=== PATIENT | female | born 1960 | race Caucasian/White ===

== ENCOUNTER 2019-05-13 12:57 | Day surgery (SDC) | payer OTHER, MEDICARE ==
[2019-05-13] MEDS ORDERED: Sodium Chloride 0.9% 10 ML FLUSH Syringe IJ ONE (12:58)
[2019-05-13] MEDS ORDERED: Decadron 4 MG INJ IV ONE (12:58)
[2019-05-13] MEDS ORDERED: Xylocaine 1% Vial 30 ML PF IJ ONE (12:58)
[2019-05-13] MEDS ORDERED: Lactated Ringers 1,000 ML IV ONE (13:45)
--- NOTE | 2019-05-13 15:09 | XRAY ---
Indication: Cervical GERMANIA. Intraoperative fluoroscopy was provided for 22 seconds. 2 digital spot images submitted for interpretation demonstrates midline needle tip just posterior to C7. Small amount of contrast injected for needle tip placement. Correlate with intraoperative findings/report.
--- NOTE | 2019-05-13 15:11 | XRAY ---
22 seconds fluoroscopy time in surgery for cervical GERMANIA.
== END 2019-05-13 14:58 | disposition home or self-care (01) ==
LOC: SDC-PAIN 12:57
PROVIDERS: ATTEND Psychiatry & Neurology Pain Medicine
DX: M54.12 Radiculopathy, cervical region (principal); K21.9 Gastro-esophageal reflux disease without esophagitis; F41.8 Other specified anxiety disorders; Z79.899 Other long term (current) drug therapy
CPT/HCPCS: 62321; 72040; 77003; J1100; J2001; Q9966

== ENCOUNTER 2019-08-26 12:33 | Day surgery (SDC) | payer OTHER, MEDICARE ==
[~2019-08-26 12:33] MED LIST: DIPRIVAN 200 MG/20 ML IV ONE; Ketamine HCl 50 MG/ML ONE
[2019-08-26] MEDS ORDERED: Xylocaine-Mpf 2% 5 Ml Vial IJ ONE (12:34)
[2019-08-26] MEDS ORDERED: Decadron 4 MG INJ IV ONE (12:34)
--- NOTE | 2019-08-26 16:25 | XRAY ---
Indication: Right C2-C4 MBB. Intraoperative fluoroscopy was provided for 20 seconds. 2 digital spot images submitted for interpretation demonstrates posterior needle tips projecting over the expected course of the right C2-C4 nerve roots. Correlate with intraoperative findings/report.
[2019-08-26] MEDS ORDERED: Lactated Ringers 1,000 ML IV ONE (16:37)
--- NOTE | 2019-08-26 16:38 | XRAY ---
20 seconds fluoroscopy time in surgery for right C2-C4 MBB.
== END 2019-08-26 14:12 | disposition home or self-care (01) ==
LOC: SDC-PAIN 12:33
PROVIDERS: ATTEND Psychiatry & Neurology Pain Medicine
DX: M47.812 Spondylosis without myelopathy or radiculopathy, cervical region (principal); K21.9 Gastro-esophageal reflux disease without esophagitis; Z79.899 Other long term (current) drug therapy
CPT/HCPCS: 64490; 64491; 72020; 77002; J1100; J2704

== ENCOUNTER 2019-12-02 11:00 | Day surgery (SDC) | payer OTHER, MEDICARE ==
[2019-12-02] MEDS ORDERED: Sodium Chloride 0.9(Preservative Free) 10 ML IJ ONE (11:01)
[2019-12-02] MEDS ORDERED: Depo-Medrol 40 MG/ML IM ONE (11:01)
--- NOTE | 2019-12-02 13:37 | XRAY ---
Indication: Left L4-L5 transforaminal GERMANIA. Intraoperative fluoroscopy provided for 1 minute 4 seconds. 3 digital spot images submitted for interpretation demonstrates posterior needle tip projecting over the expected left L5 nerve root. Small amount of contrast injected for needle tip placement. Correlate with intraoperative findings/report. Incidental partially visualized bilateral posterior L4-L5 fusion hardware.
[2019-12-02] MEDS ORDERED: Lactated Ringers 1,000 ML IV ONE (13:45)
--- NOTE | 2019-12-02 13:51 | XRAY ---
1 minute and 4 seconds fluoroscopy time in surgery for left L4-L5 transforaminal GERMANIA.
== END 2019-12-02 13:33 | disposition home or self-care (01) ==
LOC: SDC-PAIN 11:00
PROVIDERS: ATTEND Psychiatry & Neurology Pain Medicine
DX: M54.16 Radiculopathy, lumbar region (principal); F41.8 Other specified anxiety disorders; K21.9 Gastro-esophageal reflux disease without esophagitis; Z79.899 Other long term (current) drug therapy
CPT/HCPCS: 72100; 77003; J1030; J2704

== ENCOUNTER 2019-12-16 10:48 | Day surgery (SDC) | payer OTHER, MEDICARE ==
[2019-12-16] MEDS ORDERED: Xylocaine 1% Vial 30 ML PF IJ ONE (10:49)
[2019-12-16] MEDS ORDERED: Decadron 4 MG INJ IV ONE (10:49)
[2019-12-16] MEDS ORDERED: Depo-Medrol 40 MG/ML IM ONE (10:49)
[2019-12-16] MEDS ORDERED: BUPIVACAINE 0.5% VIAL IJ ONE (10:49)
[2019-12-16] MEDS ORDERED: Lactated Ringers 1,000 ML IV ONE (13:49)
--- NOTE | 2019-12-16 14:19 | XRAY ---
Indication: Left greater trochanter bursa injection. Intraoperative fluoroscopy was provided for 11 seconds. Single digital spot image obtained prone demonstrates posterior needle tip projecting just lateral to the left greater trochanter. Small amount of contrast injected for needle tip placement. Correlate with intraoperative findings/report.
--- NOTE | 2019-12-16 14:19 | XRAY ---
Indication: Left piriformis muscle injection. Intraoperative fluoroscopy was provided for 7 seconds. Single digital spot image obtained prone demonstrates posterior needle tip projecting over the expected left piriformis muscle. Small amount of contrast injected for needle tip placement. Correlate with intraoperative findings/report.
--- NOTE | 2019-12-16 16:55 | XRAY ---
7 seconds of fluoroscopy was used in surgery for a left piriformis muscle injection.
--- NOTE | 2019-12-16 17:06 | XRAY ---
11 seconds of fluoroscopy was used in surgery for a left greater trochanteric bursa injection.
== END 2019-12-16 12:51 | disposition home or self-care (01) ==
LOC: SDC-PAIN 10:48
PROVIDERS: ATTEND Psychiatry & Neurology Pain Medicine
DX: M60.9 Myositis, unspecified (principal); M16.12 Unilateral primary osteoarthritis, left hip; K21.9 Gastro-esophageal reflux disease without esophagitis; Z79.899 Other long term (current) drug therapy
CPT/HCPCS: 20552; 20605; 20610; 72020; 73501; 77002; J1030; J1100; J2001; J2704; Q9966